=== PATIENT | male | born 1930 | race Caucasian/White ===

== ENCOUNTER 2018-08-20 12:33 | Emergency (ER) | payer MEDICARE, BC ==
[~2018-08-20] VITALS: Ht 172.7 cm; Wt 79.5 kg
[~2018-08-20 12:33] MED LIST: CARDIOTEK RX TA1 TA1 PO; MAGNESIUM; MAGNESIUM OXID500 MG PO; NORCO 7.5/325 T1 TA1 PO; [UNRECOGNIZED DRUG - OTHER] PO
[2018-08-20 12:45] VITALS: BP 163/86; Ht 172.7 cm; Wt 79.5 kg
[2018-08-20 13:55] LABS: BASOPHILS 0.4 % (0-2); EOSINOPHILS 1.8 % (0-7); HEMATOCRIT 46.7 % (42.0-54.0); HEMOGLOBIN 16.2 g/dL (13.5-17.5); IMMATURE GRANULOCYTES 0.2 % (0-5); LYMPHOCYTES 20.6 % (15-50); MCHC 34.7 g/dL (31.0-37.0); MCV 92.1 fL (80.0-100.0); MEAN PLATELET VOLUME 9.2 fL (7.4-10.4); MONOCYTES 8.9 % (2-11); NEUTROPHILS 68.1 % (40-80); PLATELET COUNT 150 10x3/uL (130-400); RBC 5.07 10x6/uL (4.20-6.10); RDW 12.7 % (11.5-14.5); WBC 5.6 10x3/uL (4.8-10.8)
[2018-08-20 14:16] LABS: ALKALINE PHOSPHATASE 56 U/L (46-116); ALT (SGPT) 15 U/L (10-68); BILIRUBIN - TOTAL 0.63 mg/dL (0.2-1.3); CALC OSMOLALITY 272 mosm/kg (275-300); CARBON DIOXIDE 27.9 mmol/L (21.0-32.0); CHLORIDE - SERUM 101 mmol/L (98-107); CREATININE - SERUM 0.9 mg/dL (0.6-1.3); GLUCOSE 113 mg/dL (74-106); POTASSIUM - SERUM 4.1 mmol/L (3.5-5.1); PROTEIN - SERUM 7.2 g/dL (6.4-8.2); SODIUM 135 mmol/L (136-145); UREA NITROGEN 19 mg/dL (7-18); eGFR NON AFRICAN AMERICAN 85 mL/min (90-120)
[2018-08-20 14:24] LABS: APTT 33.2 SECONDS (22.8-39.4); INR 1.1 (0.85-1.17); PROTIME 13.8 SECONDS (11.6-15.0)
== END 2018-08-20 15:56 | disposition home or self-care (01) ==
LOC: D.ER 12:33
PROVIDERS: Family Medicine
DX: S00.93XA Contusion of unspecified part of head, initial encounter (principal); W18.30XA Fall on same level, unspecified, initial encounter; Y93.89 Activity, other specified; Y92.019 Unspecified place in single-family (private) house as the place of occurrence of the external cause; S00.91XA Abrasion of unspecified part of head, initial encounter

== ENCOUNTER → 2019-06-23 09:13 | Outpatient (CLI) | payer MEDICARE, BC ==
[2018-08-20 12:45] VITALS: BMI 26.6
== END | disposition home or self-care (01) ==
LOC: D.CT 09:13
PROVIDERS: ATTEND Family Medicine
DX: J18.9 Pneumonia, unspecified organism (principal)

== ENCOUNTER 2019-08-05 06:48 | Outpatient (CLI) | payer MEDICARE, BC ==
[~2019-08-05] VITALS: Ht 175.3 cm; Wt 79.5 kg
[2019-08-05 07:21] LABS: BASOPHILS 0.4 % (0-2); HEMATOCRIT 45.7 % (42.0-54.0); HEMOGLOBIN 15.7 g/dL (13.5-17.5); IMMATURE GRANULOCYTES 0.2 % (0-5); LYMPHOCYTES 27.7 % (15-50); MCHC 34.4 g/dL (31.0-37.0); MCV 93.1 fL (80.0-100.0); MONOCYTES 11.8 % (2-11); NEUTROPHILS 55.9 % (40-80); PLATELET COUNT 170 10x3/uL (130-400); RBC 4.91 10x6/uL (4.20-6.10); WBC 4.5 10x3/uL (4.8-10.8)
[2019-08-05] MEDS ORDERED: ASCORBIC ACID500 MG PO (07:30)
[2019-08-05 07:32] VITALS: Ht 175.3 cm; Wt 79.5 kg
[2019-08-05 07:49] LABS: INR 1.03 (0.85-1.17)
[2019-08-05 07:50] LABS: APTT 35.7 SECONDS (22.8-39.4)
--- NOTE | 2019-08-05 09:57 | NUR ---
0953 SEE POST PROCEDURE CHECKLIST FOR VITAL SIGN TRENDS. 1000 NO RESP. DISTRESS. VOIDS 400CC YELLOW URINE.
--- NOTE | 2019-08-05 13:02 | NUR ---
1100 DC INSTS. GIVEN VOICED UNDERSTANDING RELEASED IN WC WITH ESCORT.
[2019-08-06 17:08] LABS: ACID FAST SMEAR Negative (()); AFB SPECIMEN PROCESSING Concentration (())
[2019-08-08 13:09] LABS: FUNGUS STAIN Final report (())
[2019-09-02 07:13] LABS: FUNGUS MYCOLOGY CULTURE Final report (())
== END 2019-08-05 11:00 | disposition home or self-care (01) ==
LOC: D.OPS 06:48
PROVIDERS: ATTEND Internal Medicine Pulmonary Disease
DX: R05 Cough (principal); J98.11 Atelectasis

== ENCOUNTER → 2020-05-06 07:32 | Outpatient (CLI) | payer MEDICARE, BC ==
[2019-08-05 07:32] VITALS: BMI 25.9
[~2020-05-06 07:32] MED LIST changes: +ASCORBIC ACID500 MG PO
== END | disposition home or self-care (01) ==
LOC: D.US 07:32
PROVIDERS: ATTEND Family Medicine
DX: K76.9 Liver disease, unspecified (principal)